=== PATIENT | female | born 1965 | race Caucasian/White ===

== ENCOUNTER 2022-09-08 17:30 | Emergency (ER) | payer BC, OTHER ==
[~2022-09-08] VITALS: Ht 167.6 cm; Wt 75.7 kg
[2022-09-08] MEDS ORDERED: HYDR-4209 PO (20:17)
[2022-09-08 22:18] VITALS: BP 135/78
== END 2022-09-08 22:18 | disposition home or self-care (01) ==
LOC: ER 17:30
DX: S90.31XA Contusion of right foot, initial encounter (principal); W20.8XXA Other cause of strike by thrown, projected or falling object, initial encounter; Y92.89 Other specified places as the place of occurrence of the external cause; Z88.2 Allergy status to sulfonamides
CPT/HCPCS: 73630; 73700; A4663